=== PATIENT | male | born 1945 | race Caucasian/White ===

== ENCOUNTER → 2017-08-17 | Outpatient (CLI) | payer MEDICARE ==
[~2017-08-17] MED LIST: ALLO300T2 PO; AMIT25TA9 PO; AMLO10TA2 PO; CHLO25TA2 PO; CLOB0.055 TOPICAL; DOXA1TAB36 PO; FLUO0.1S9 EACH EYE; GLIP5TAB PO; HYDR-3583 PO; IRBE300T11 PO; MELO15TA20 PO; SIMV20TA PO; TRAM50TA; ZOLP10TA3 PO
[2017-08-17 09:55] LABS: BILIRUBIN, URINE NEG (NEG); BLOOD, URINE NEG (NEG); GLUCOSE,URINE NEG (NEG); HYALINE CAST, URINE 1 /lpf (RARE); KETONE, URINE NEG (NEG); MUCUS URINE FEW /lpf (OCC); NITRITE,URINE NEG (NEG); PH, URINE 5.5 (5.0-8.5); SQUAMOUS EPITHELIAL CELL URINE <1 /hpf (0-5); URINE COLOR YELLOW (YELLW/STRAW); URINE LEUKOCYTE ESTERASE NEG (NEG)
[2017-08-17 09:57] LABS: AUTOMATED NEUTROPHIL # 2.8 TH/MM3 (1.8-7.7); BASOPHIL % 0.6 % (0.0-2.0); EOSINOPHIL # 0.1 TH/MM3 (0-0.4); EOSINOPHIL % 2.9 % (0.0-4.0); HEMATOCRIT 39.3 % (39.0-51.0); HEMOGLOBIN 13.5 GM/DL (13.0-17.0); LYMPH % 34.3 % (9.0-44.0); LYMPHOCYTE # 1.7 TH/MM3 (1.0-4.8); MEAN CELL VOLUME 95.4 FL (80.0-100.0); MEAN CORPUSCULAR HEMOGLOBIN 32.8 PG (27.0-34.0); MEAN CORPUSCULAR HGB CONC 34.3 % (32.0-36.0); MEAN PLATELET VOLUME 8.3 FL (7.0-11.0); MONO % 7.7 % (0.0-8.0); MONOCYTE # 0.4 TH/MM3 (0-0.9); NEUT % 54.5 % (16.0-70.0); PLATELET COUNT 151 TH/MM3 (150-450); RED BLOOD COUNT 4.12 MIL/MM3 (4.50-5.90); RED CELL DISTRIBUTION WIDTH 13.6 % (11.6-17.2); WHITE BLOOD COUNT 5.1 TH/MM3 (4.0-11.0)
--- NOTE | 2017-08-17 10:03 | RADRPT ---
EXAM DATE/TIME: 08/17/2017 09:41 [facility] COMPARISON: No previous studies available for comparison. INDICATIONS : Evaluate for pneumonia, pneumothorax or communicable disease. Pre op for cervical spine surgery MEDICAL HISTORY : None. SURGICAL HISTORY : None. ENCOUNTER: Initial ACUITY: 1 day PAIN SCORE: 0/10 LOCATION: Bilateral chest FINDINGS: PA and lateral views of the chest demonstrate the lungs to be symmetrically aerated without evidence of mass, infiltrate or effusion. The cardiomediastinal contours are unremarkable. Osseous structure s are intact. CONCLUSION: No acute disease. Evens Pinto MD FACR on August 17, 2017 at 10:00 Board Certified Radiologist. This report was verified electronically.
[2017-08-17 10:11] LABS: ALBUMIN 4.1 GM/DL (3.4-5.0); ALT (GPT) 15 U/L (12-78); AST (GOT) 19 U/L (15-37); BICARBONATE 28.5 MEQ/L (21.0-32.0); BLOOD UREA NITROGEN 9 MG/DL (7-18); CALCIUM 8.7 MG/DL (8.5-10.1); CHLORIDE 104 MEQ/L (98-107); CREATININE 0.98 MG/DL (0.60-1.30); GLOMERULAR FILTRATION RATE 75 ML/MIN (>89); GLUCOSE,FASTING 147 MG/DL (74-99); SODIUM (NA) 140 MEQ/L (136-145)
[2017-08-17 10:12] LABS: ALKALINE PHOSPHATASE 105 U/L (45-117); TOTAL BILIRUBIN ADULT 0.7 MG/DL (0.2-1.0); TOTAL PROTEIN 7.3 GM/DL (6.4-8.2)
== END ==
LOC: CPRE 08:24
PROVIDERS: ATTEND Neurological Surgery
DX: Z01.811 Encounter for preprocedural respiratory examination (principal); Z01.812 Encounter for preprocedural laboratory examination; Z01.818 Encounter for other preprocedural examination; M50.10 Cervical disc disorder with radiculopathy, unspecified cervical region
CPT/HCPCS: 36415; 71046; 80053; 81001; 85025; 85610; 85730; 87640; 87641

== ENCOUNTER 2017-08-23 06:23 | Observation (INO) | payer MEDICARE ==
[~2017-08-23] VITALS: Ht 182.9 cm; Wt 110.8 kg
[~2017-08-23 06:23] MED LIST changes: -HYDR-3583 PO; -TRAM50TA
[2017-08-23] MEDS ORDERED: METOPROLOL TARTRATE 25 MG TAB PO PRN (06:45)
[2017-08-23] MEDS ORDERED: SODIUM CHLORID 0.9% 500 ML IV PRN (06:45)
[2017-08-23] MEDS ORDERED: POVIDONE IODINE 5% (ANTISEPSIS KIT) 4 APPLICATIONS EACH NARE PRN (06:45)
[2017-08-23] MEDS ORDERED: LACTATED RINGER'S 1000 ML IV PRN (06:45)
[2017-08-23] MEDS ORDERED: VANCOMYCIN 1000 MG/NS 250 ML ON-CALL IV SCH ×2 (06:45)
[2017-08-23] MEDS ORDERED: CHLORHEXIDINE GLUCONATE 2 % 1 PACK (2 CLOTHS) TOPICAL PRN (06:45)
[2017-08-23] MEDS ORDERED: ACETAMINOPHEN 1000 MG/100 ML 100 ML IV ONE (06:53)
[2017-08-23] MEDS ORDERED: ARTIFICIAL TEARS OPTH OINT 3.5 APPLIC/3.5 GM TUBO ONE (06:53)
[2017-08-23] MEDS ORDERED: PROPOFOL 500 MG/50 ML INJ 150 ML ONE (06:54)
[2017-08-23] MEDS ORDERED: SODIUM CHLOR 0.9% 1000 ML INJ 1,000 ML IV SCH (07:00)
[2017-08-23] MEDS ORDERED: ceFAZolin 2 GM PREMIX 50 ML ONE (07:17)
[2017-08-23] MEDS ORDERED: THROMBIN (TOPICAL) 5,000 UNIT VIAL ONE (07:17)
[2017-08-23] MEDS ORDERED: GELFOAM SIZE 100 ONE (07:17)
[2017-08-23] MEDS ORDERED: GENTAMICIN SULFATE 80 MG/2 ML VIAL ONE (07:17)
[2017-08-23] MEDS ORDERED: MICROFIBRILLAR COLLAGEN HEMOSTAT 70 X 35 MM BANDAGE ONE (07:17)
[2017-08-23] MEDS: CHLORHEXIDINE GLUCONATE 2 % 1 PACK (2 CLOTHS) TOPICAL SCH (09:00)
[2017-08-23] MEDS ORDERED: PROPOFOL 500 MG/50 ML INJ 100 ML ONE (09:53)
[2017-08-23] MEDS ORDERED: KETAMINE HCL 500 MG/5 ML VIAL ONE (09:53)
[2017-08-23] MEDS ORDERED: PHENYLEPHRINE HCL 10 MG/ML VIAL IV ONE (12:00)
[2017-08-23] MEDS ORDERED: SODIUM CHLORID 0.9% 500 ML INJ 500 ML IV ONE (12:00)
[2017-08-23] MEDS ORDERED: ONDANSETRON HCL 4 MG/2 ML VIAL IV ONE (12:00)
[2017-08-23] MEDS ORDERED: PHENYLEPH/NS 1000 MCG/10 ML SYR IV ONE (12:00)
[2017-08-23] MEDS ORDERED: SODIUM CHLOR 0.9% 250 ML INJ 500 ML IV ONE (12:00)
[2017-08-23] MEDS ORDERED: ePHEDrine/NS 25 MG/5 ML SYRINGE IV ONE (12:00)
[2017-08-23] MEDS ORDERED: KETOROLAC TROMETHAMINE 30 MG/ML (IVP) VIAL IV PUSH ONE (12:00)
[2017-08-23] MEDS ORDERED: LACTATED RINGER'S 1000 ML INJ 2,000 ML IV ONE (12:00)
[2017-08-23] MEDS ORDERED: PROPOFOL 200 MG/20 ML AMP IV ONE (12:00)
[2017-08-23] MEDS ORDERED: LIDOCAINE HCL 1% PF 5 ML SYRINGE OTHER ONE (12:00)
[2017-08-23] MEDS ORDERED: ROCURONIUM INJ 50 MG/5 ML SYRINGE IV PUSH ONE (12:00)
[2017-08-23] MEDS ORDERED: DEXAMETHASONE SOD PHOS 4 MG/ML VIAL IV ONE (12:00)
[2017-08-23] MEDS: SODIUM CHLOR 0.9% 1000 ML INJ 1,000 ML IV SCH ×3 (12:12→22:41)
[2017-08-23] MEDS ORDERED: ONDANSETRON HCL 4 MG/2 ML VIAL IV PRN (12:15)
[2017-08-23] MEDS ORDERED: MAGNESIUM HYDROXIDE SUSP 30 ML CUP PO PRN (12:15)
[2017-08-23] MEDS ORDERED: ACETAMINOPHEN/HYDROcodone 325 MG/10 MG TAB PO PRN ×2 (12:15→14:00)
[2017-08-23] MEDS ORDERED: cloNIDine HCL 0.1 MG TAB PO/NG PRN (12:15)
[2017-08-23] MEDS ORDERED: BISACODYL 10 MG SUPP RECTAL PRN (12:15)
[2017-08-23] MEDS ORDERED: GLUCAGON 1 MG/ML VIAL OTHER PRN ×2 (12:15→12:30)
[2017-08-23] MEDS ORDERED: CYCLOBENZAPRINE HCL 10 MG TAB PO PRN (12:15)
[2017-08-23] MEDS ORDERED: MORPHINE SULFATE 4 MG/ML INJ IV PUSH PRN ×2 (12:15)
[2017-08-23] MEDS ORDERED: ACETAMINOPHEN 325 MG TAB PO PRN (12:15)
[2017-08-23] MEDS ORDERED: DEXTROSE 50% IN WATER 50 ML VIAL(D50) IV PUSH PRN ×2 (12:15→12:30)
[2017-08-23] MEDS ORDERED: RESP: ALBUTEROL 2.5 MG/3 ML NEB (PRN) INH (12:15)
[2017-08-23] MEDS ORDERED: DO NOT ADM ANY ANTICOAGULANT DRUGS PRN (12:15)
[2017-08-23] MEDS ORDERED: MENTHOL LOZENGE BUCCAL PRN (12:15)
--- NOTE | 2017-08-23 12:43 | PD.OP ---
Operative Report Date of Surgery: Aug 23, 2017 Preoperative Diagnosis: Cervical spinal stenosis Postoperative Diagnosis: Cervical spinal stenosis Procedure: C5-6, C6-7 anterior cervical discectomy, interbody arthodhesis using PEEK cage filled with autologous bone graft, Simplicity plate and screws. Anesthesia: general Surgeon: Julián Healy Cable Ferryboat Operator(s): Alba De La Vega Operation and Findings: INDICATIONS FOR THE PROCEDURE Mr Harris is a 72 year-old male who presented with intractable neck pain and clinical evidence of C6 and C7 upper extremity radiculopathy. He was found to have significant spondylosis with stenosis. He has failed maximum nonsurgical management including multiple modalities of conservative treatment as well as pain management interventions by an interventional pain specialist. A surgical decompression and arthrodhesis were indicated. The [id number] details of the procedure, indications, alternatives, risks and potential complications were fully discussed with the patient. The patient fully understood. All The questions were answered. No guarantees were given. The patient voiced requesting the procedure and provided informed consents. The patient was offered the alternative of delaying the procedure and continuing with nonsurgical management. DETAILS OF THE SURGICAL PROCEDURE After the induction of general anesthesia, endotracheal intubation was performed. A Alvarado catheter, bilateral SALMA hose, and sequential compression devices were placed and kept throughout the procedure. Placement of electrodes for neurophysiological monitoring of the somato sensorial evoked potentials. motor evoked potentials, and EMG as well as laryngeal nerve monitoring was achieved. The patient was positioned supine on a Ghassan table with the head over a gel doughnut. All pressure points were carefully padded with eggcrate mattress. The eyes were tapped shut after ointment was applied by the anesthesiologist to prevent corneal abrasion. A Lara hugger was placed over the exposed lower body to maintain control of the core body temperature. The electrophysiological team placed the needles and electrodes in their proper location and baseline SSEP's and motor evoked potentials were registered prior and after positioning and endotracheal intubation. The anterior cervical region was prepped and draped in the usual sterile fashion. A localizing x-ray was performed with a C-arm. The surgical procedure was performed in several steps as follow: SURGICAL APPROACH A skin incision was made along the inferior cervical crease with a #10 blade. The dissection was carried out through the platysma exposing the sternocleidomastoid muscle. The cervical spine was approached following the fascial layers of the neck just medial to the anterior border of the sternocleidomastoid and carotid sheath by a combination of sharp and dull dissection. The omohyoid muscle was identified and carefully dissected laterally and the deep cervical fascia was carefully opened. The longus colli muscles were retracted to each side of the midline. A marker was placed at the disc space C5-6 and a cross-table lateral x-ray performed with a C-arm. SURGICAL DECOMPRESSION In order to decompress the anterior surface of the spinal cord it was necessary to preform a microsurgical resection of the disk at C5-6 and C6-7. At this point in the procedure the operating microscope was draped in the usual sterile fashion and brought to the field. The rest of the surgical procedure was performed using microdissection technique with the exception of the closure. Under the operative microscopic, a self-retaining retractor was placed underneath the longus colli muscle. Anterior osteophite spurs werte carefully removed with the Le[place]ell. The annulus at C5-6 and C6-7 were incised with a #15 blade and microdiscectomy was then carefully carried out using angled curets and pituitary forceps. There were osteophitic/disk complexes mass effect and compression of the dural sac and nerve roots. The posterior longitudinal ligament was then elevated with an angled curet and incised with a 15 bladed knife. A careful resection of the posterior longitudinal ligament was carried out using a thin footplate 2 mm Kerrison. A nerve hook was used to assess the epidural space behind the vertebral bodies C5, C6, and C7 in search for residual disk fragments. The margins of the posterior endplates at C5-6 and C6- 7 were carefully drilled and undercut with a TPS drill under high magnification. The decompression was then carried out laterally, and a bilateral foraminotomy was performed with a 2mm thin foot Kerrison. Then the vertebral bodies above and below the disk space were undercut using a 2 mm thin foot Kerrison. The epidural space was the systematically assessed with a nerve hook in search for disk fragments of scarr tissue. An excellent decompression was achieved in both, the dural sac and bilateral exiting nerve roots. The incision was then irrigated with a large amount of antibiotic solution INTERBODY ARTHRODHESIS In order to avoid collapse of the disk space which would result in bilateral foraminal stenosis, and to increase the chances of a successful fusion, it was necessary to place an interbody cage filled with autologous bone. At this point of the procedure, the superior and inferior endplates were then evenly decorticated with a TPS drill. The use of a drill in combination with a curette allowed me to systematically remove the cartilaginous endplates, exposing healthy bone for the interbody arthrodesis. Fourteen millimeters distraction pins were then placed at the vertebral bodies adjacent to the disk space, and gentle distraction was applied. The size of the interbody cage was then assessed using different size spacers, and a rasp was used to ensure no residual cartilage. A PEEK cage of the appropriate size was selected, and the interbody arthrodesis was then preformed by carefully impacting a PEEK cage filled with autologous bone graft to the disc spaces C5-6 and C6-7. An excellent position of the cage was achieved. This was was confirmed anatomically by feeling the space posterior to the implant and distance to the anterior surface of the dural sac. Radiological confirmation of the position was performed with a cross lateral xray performed with the C-arm. INTERNAL INSTRUMENTAL FIXATION Once that the interbody device was in an appropriate position, it was necessary to stabilize the spine with anterior instrumentation. Anterior instrumentation has demonstrated to increase the rate of fusion, accelerate the patient's recovery, and decrease the rate of failed interbody grafts. At this point of the procedure, the distance between the vertebral bodies was carefully measures, and a Simplicity plate was brought to the field and presented in front of the vertebral bodies C5, C6, and C7. Meat Slicer holes were then drilled using the TPS drill, and the plate was then secured to the spine using self-drilling, self-tapping screws. Initially, the inferior right screw was inserted, followed by placement of the contralateral upper screw. The remanding screws were sequentially placed in a contra-lateral fashion. A proper purchase was achieved with all screws and the position of the cage, plate and screws, and alignment of the spine was assessed anatomically by direct visualization, and radiologically by performing a cross lateral xray of the cervical spine with the C-arm. CLOSURE The incision was irrigated with several liters of antibiotic solution. Hemostasis was achieved with a bipolar. The screws were locked to prevent backing out. A 7 mm Ghassan-Sutton drain was left in the prevertebral space and externalized through a separate stab incision. The incision was then closed in layers. 3-0 Vicryl with interrupted sutures was used to close the platysma and subcutaneous tissue. The skin was closed with 4-0 running subcuticular Vicryl and glue was applied to the skin. The drain was secured with a 3-0 nylon. At the end of the procedure the sponge, needle and instrument counts were all correct. The estimated blood loss was less than 70-80 cc. No blood transfusion was given. No intraoperative complications occurred. The patient received prophylactic antibiotics. The patient was then extubated and transferred to the recovery room in stable condition. Julián Healy MD Aug 23, 2017 12:43
[2017-08-23] MEDS ORDERED: MIDAZOLAM HCL 2 MG/2 ML VIAL ONE (12:50)
[2017-08-23] MEDS ORDERED: *morphine SULFATE 4 MG/ML PERIprocedure ONLY ONE (13:08)
--- NOTE | 2017-08-23 14:45 | RADRPT ---
EXAM DATE/TIME: 08/23/2017 12:00 [facility] COMPARISON: No previous studies available for comparison. INDICATIONS : C5-6, C6-7 Anterior cervical disc fusion. MEDICAL HISTORY : Hypertension. Diabetes mellitus type II. Osteoarthritis. SURGICAL HISTORY : None. ENCOUNTER: Initial ACUITY: 1 day PAIN SCORE: Non-responsive. LOCATION: Cervical spine. FINDINGS: 2 magnified C-arm spot views lateral projections of the cervical spine. An anterior fusion plate with intervening bone graft device is seen involving C5-C6 and C6-C7. A surgical drain is noted within th e prevertebral soft tissues. The alignment seen within this lateral projection. CONCLUSION: Anterior fusion from C5-C7. Arnav Whitaker Jr., MD on August 23, 2017 at 14:42 Board Certified Radiologist. This report was verified electronically.
[2017-08-23 16:00] VITALS: BP 140/77; PULSE 104; RESP 18; TEMP 98.4; O2SAT 95
[2017-08-23 17:02] VITALS: O2SAT 96
[2017-08-23] MEDS: ceFAZolin 2 GM PREMIX 50 ML IV SCH (17:48)
[2017-08-23] MEDS: DEXAMETHASONE SOD PHOS 4 MG/ML VIAL IV PUSH SCH ×2 (17:48→22:37)
[2017-08-23] MEDS: INSULIN ASPART SUPPLEMENTAL SCALE SQ SCH ×2 (17:49→22:47)
[2017-08-23] MEDS ORDERED: PILL SPLITTER OTHER PRN (20:00)
[2017-08-23 20:34] VITALS: BP 141/72; PULSE 102; RESP 17; TEMP 98.6; O2SAT 95
[2017-08-23] MEDS ORDERED: ZOLPIDEM TARTRATE 10 MG TAB PO SCH (21:00)
[2017-08-23] MEDS ORDERED: CHLORHEXIDINE GLUCONATE 4% SOLN 120 ML BTL TOP SCH (21:00)
[2017-08-23] MEDS ORDERED: SIMVASTATIN PO SCH (21:00)
[2017-08-23] MEDS ORDERED: CLOBETASOL TOPICAL SCH (21:00)
[2017-08-23] MEDS ORDERED: AMITRIPTYLINE HCL 25 MG TAB PO SCH ×2 (21:00)
[2017-08-23] MEDS ORDERED: PRAVASTATIN SOD 40 MG TAB PO SCH (21:00)
[2017-08-23] MEDS: DOCUSATE SODIUM 100 MG CAP PO SCH (22:35)
[2017-08-24 00:38] VITALS: BP 152/77; PULSE 108; RESP 17; TEMP 98.1; O2SAT 95
[2017-08-24] MEDS: CHLORHEXIDINE GLUCONATE 2 % 1 PACK (2 CLOTHS) TOPICAL SCH ×2 (02:47→09:00)
[2017-08-24] MEDS: ceFAZolin 2 GM PREMIX 50 ML IV SCH ×2 (02:47→08:58)
[2017-08-24] MEDS: DEXAMETHASONE SOD PHOS 4 MG/ML VIAL IV PUSH SCH (05:03)
[2017-08-24 05:44] VITALS: BP 150/76; PULSE 86; RESP 17; TEMP 97.2; O2SAT 95
[2017-08-24 08:46] VITALS: BP 165/82; PULSE 89; RESP 18; TEMP 97.6; O2SAT 99
--- NOTE | 2017-08-24 08:49 | PD.CONS ---
[facility] By [facility] Reason for Consult Medical management. Primary Care Physician Eduardo Kimbrough M.D. Diagnoses: History of Present Illness Mr. Harris is a pleasant 72 year old male with a history of shoulder pain, right arm weakness who underwent surgical interventions for cervical spinal stenosis on 08/23/2017. 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 However, in the last year or so, he started having shoulder pain as well as right arm numbness, tingling and weakness. After evaluation by PCP and initial radiological work up, patient underwent MRI studies and EMG study. Subsequently, he was evaluated by neurosurgery. Despite conservative treatment, pain management, his symptoms were not getting better. Neurosurgery recommended surgical intervention which led to surgery during this admission. At the time of this interview, patient is doing well. Ambulating well. Denies any chest pain, shortness of breath, fever or chills. He has mild tingling on his right fingers. He has a cervical collar in place. No changes in bowel or bladder habits. Review of Systems Except as stated in HPI: all other systems reviewed are Neg Past Family Social History Allergies: Coded Allergies: No Known Allergies (Verified , 08/23/17) Past Medical History Hyperlipidemia Hypertension Neuropathic pain Diabetes mellitus Gout. Past Surgical History Hernia repair, hemorrhoid surgery, cataract Reported Medications Current Medications Medications (Trade) Dose Ordered Sig/Luzmaria Route Start Time Stop Time Status Last Admin (Lopressor) 25 mg CARDIOVASCULAR TECH PRN PO 08/23/17 06:45 08/26/17 06:44 (Betadine 5% Antisepsis Kit) 1 applic CARDIOVASCULAR TECH PRN EACH NARE 08/23/17 06:45 08/26/17 06:44 (Chlorhexidine 2% Cloth) 3 pack CARDIOVASCULAR TECH PRN TOPICAL 08/23/17 06:45 08/26/17 06:44 (Chlorhexidine 2% Cloth) 1 pack DAILY TOPICAL 08/23/17 09:00 08/25/17 09:01 08/24/17 02:47 Sodium Chloride 1,000 ml @ 100 mls/hr Q10H IV 08/23/17 12:12 08/23/17 22:41 (Dulcolax Supp) 10 mg DAILY PRN RECTAL 08/23/17 12:15 (Colace) 100 mg BID PO 08/23/17 21:00 08/24/17 08:59 (Milk Of Magnesia Liq) 30 ml DAILY PRN PO 08/23/17 12:15 (Protonix) 40 mg DAILY PO 08/24/17 09:00 08/24/17 09:00 (Protonix Inj) 40 mg DAILY PRN IVP 08/24/17 09:00 (Zofran Inj) 4 mg Q6H PRN IV 08/23/17 12:15 ([place] 10-325 Mg) 1 tab Q4H PRN PO 08/23/17 14:00 ([place] 10-325 Mg) 2 tab Q4H PRN PO 08/23/17 12:15 (Morphine Inj) 2 mg Q2H PRN IV PUSH 08/23/17 12:15 (Morphine Inj) 4 mg Q2H PRN IV PUSH 08/23/17 12:15 (Flexeril) 10 mg Q8H PRN PO 08/23/17 12:15 (Catapres) 0.1 mg Q6H PRN PO/NG 08/23/17 12:15 (Tylenol) 650 mg Q4H PRN PO 08/23/17 12:15 ([place] Dary) 1 lozenge UNSCH PRN BUCCAL 08/23/17 12:15 (Albuterol Neb) 2.5 mg Q4HR NEB PRN INH 08/23/17 12:15 (Hibiclens 4% Top Soln) 1 applic HS TOP 08/23/17 21:00 08/25/17 21:01 08/23/17 22:37 (D50w (Vial) Inj) 50 ml UNSCH PRN IV PUSH 08/23/17 12:15 (Glucagon Inj) 1 mg UNSCH PRN OTHER 08/23/17 12:15 (Cardura) 1 mg DAILY PO 08/24/17 09:00 (Ambien) 10 mg HS PO 08/23/17 21:00 08/23/17 22:36 (NovoLOG SUPPLEMENTAL SCALE) 1 ACHS SLIDING SCALE SQ 08/23/17 17:00 08/24/17 09:12 Miscellaneous Information ALL NURSING DEPARTME... UNSCH PRN .XX 08/23/17 12:15 08/24/17 12:14 (Zyloprim) 300 mg DAILY PO 08/24/17 09:00 08/24/17 08:59 (Elavil) 25 mg HS PO 08/23/17 21:00 08/23/17 22:47 (Norvasc) 10 mg DAILY PO 08/24/17 09:00 08/24/17 08:58 (Cozaar) 100 mg DAILY PO 08/24/17 09:00 08/24/17 08:59 (Pravachol) 40 mg HS PO 08/23/17 21:00 08/23/17 22:35 (Glucotrol) 5 mg DAILY PO 08/24/17 09:00 08/24/17 08:58 (Glucophage) 500 mg DAILY PO 08/24/17 09:00 08/24/17 08:58 (Mobic) 15 mg DAILY PO 08/24/17 09:00 08/24/17 08:58 (Hygroton) 25 mg DAILY PO 08/24/17 09:00 08/24/17 08:58 (Pill Splitter) 1 ea UNSCH PRN OTHER 08/23/17 20:00 Family History Dad underwent a pacemaker placement at age 95. Mom was healthy but she had dizzy spells. Social History Patient denies using any tobacco or illicit drugs. She drinks socially. Physical Exam Vital Signs Vital Signs Date Time Temp Pulse Resp B/P (MAP) Pulse Ox O2 Delivery O2 Flow Rate FiO2 08/24/17 05:44 97.2 86 17 150/76 (100) 95 08/24/17 00:38 98.1 108 17 152/77 (102) 95 08/23/17 20:34 98.6 102 17 141/72 (95) 95 08/23/17 17:02 96 Nasal Cannula 2.00 08/23/17 16:00 98.4 104 18 140/77 (98) 95 08/23/17 14:45 97.7 99 22 138/67 (90) 95 Nasal Cannula 2 08/23/17 14:00 95 20 130/61 (84) 96 Nasal Cannula 2 08/23/17 13:15 90 19 10/59 (43) 96 Nasal Cannula 2 08/23/17 13:00 82 20 117/58 (77) 94 Nasal Cannula 3 08/23/17 12:45 79 14 111/54 (73) 95 Nasal Cannula 3 08/23/17 12:40 Nasal Cannula 4 08/23/17 12:30 77 18 106/56 (73) 94 Simple Mask 5 08/23/17 12:17 98.7 87 20 108/52 (70) 88 Simple Mask 5 Physical Exam GENERAL: This is a well-nourished, well-developed patient, in no apparent distress. SKIN: No rashes, ecchymoses or lesions. Warm and dry. HEAD: Atraumatic. Normocephalic. No temporal or scalp tenderness. Cervical collar in place EYES: Pupils equal round and reactive. No injection or drainage. ENT: Nose without bleeding, purulent drainage or septal hematoma. Airway patent. NECK: Trachea midline. No lymphadenopathy. Supple, nontender, no meningeal signs. CARDIOVASCULAR: Regular rate and rhythm without murmurs, gallops, or rubs. No JVD. RESPIRATORY: Clear to auscultation. Breath sounds equal bilaterally. No wheezes , rales, or rhonchi. GASTROINTESTINAL: Abdomen soft, non-tender, nondistended. No guarding. MUSCULOSKELETAL: Extremities without clubbing, cyanosis, or edema. Patient is left-handed. Equal hand strength. NEUROLOGICAL: Awake and alert. Cranial nerves II through XII intact. No focal neurological deficits. Normal speech. Imaging Last Impressions Cervical Spine X-Ray 08/23/17 0000 Signed Impressions: Service Date/Time: Wednesday, August 23, 2017 12:00 - CONCLUSION: Anterior fusion from C5-C7. Arnav Whitaker Jr., MD Assessment and Plan Problem List: (1) Cervical spinal stenosis ICD Code: M48.02 - Spinal stenosis, cervical region (2) Diabetes mellitus ICD Code: E11.9 - Type 2 diabetes mellitus without complications (3) Hypertension ICD Code: I10 - Essential (primary) hypertension Assessment and Plan Mr. Harris is a pleasant 72-year-old male with a history of diabetes mellitus, hypertension, chronic shoulder pain and right arm numbness, weakness and pain. Patient underwent neurosurgical intervention due to cervical spinal stenosis. - Cervical spinal stenosis - s/p C5-6, C6-7 anterior cervical discectomy, interbody arthodhesis using PEEK cage filled with autologous bone graft, Simplicity plate and screws. - Continue Cervical collar for 3 weeks. - VANESA drain to be discontinued today. - Diabetes mellitus - Patient takes glipizide and metformin combo pill 5-500 milligrams twice a day. - He reports that his hemoglobin A1c is a usually around 6.2. - His blood glucose has been somewhat elevated. Could be because of dexamethasone. Decadron will be discontinued. - No adjustment in home medication for diabetes mellitus. - Hypertension - Continue amlodipine 10 mg daily, Irbesartan 300 mg daily, chlorthalidone 25 mg daily. - Neuropathic pain - Insomnia - Continue amitriptyline, zolpidem. Thank you for the consult. We'll continue to follow this patient with you during this hospitalization. Patient is being discharged today. Cris Jean DO Aug 24, 2017 8:49 am
[2017-08-24] MEDS ORDERED: HYDR-3583 PO (08:56)
[2017-08-24] MEDS: DOCUSATE SODIUM 100 MG CAP PO SCH (08:59)
[2017-08-24] MEDS ORDERED: CHLORTHALIDONE PO SCH (09:00)
[2017-08-24] MEDS ORDERED: MELOXICAM 15 MG TAB PO SCH ×2 (09:00)
[2017-08-24] MEDS ORDERED: IRBESARTAN PO SCH (09:00)
[2017-08-24] MEDS ORDERED: PANTOPRAZOLE SODIUM 40 MG VIAL IVP PRN (09:00)
[2017-08-24] MEDS ORDERED: PANTOPRAZOLE SOD 40 MG DELAYED RELEASE TAB PO SCH (09:00)
[2017-08-24] MEDS ORDERED: ALLOPURINOL 300 MG TAB PO SCH ×2 (09:00)
[2017-08-24] MEDS ORDERED: metFORMIN HCL 500 MG TAB PO SCH (09:00)
[2017-08-24] MEDS ORDERED: LOSARTAN 50 MG TAB PO SCH (09:00)
[2017-08-24] MEDS ORDERED: DOXAZOSIN MESYLATE 1 MG TAB PO SCH (09:00)
[2017-08-24] MEDS ORDERED: CHLORTHALIDONE 50 MG TAB PO SCH (09:00)
[2017-08-24] MEDS ORDERED: glipiZIDE 5 MG TAB PO SCH (09:00)
[2017-08-24] MEDS: INSULIN ASPART SUPPLEMENTAL SCALE SQ SCH (09:12)
--- NOTE | 2017-08-24 09:18 | HHI.DCPOC ---
Discharge Care Plan Diagnosis: (1) Status post cervical spinal arthrodesis (2) Diabetes Goals to Promote Your Health * To prevent worsening of your condition and complications * To maintain your health at the optimal level Directions to Meet Your Goals Take your medications as prescribed Follow your dietary instruction Follow activity as directed Keep your appointments as scheduled Take your immunizations and boosters as scheduled If your symptoms worsen call your PCP, if no PCP go to Urgent Care Center or Emergency Room Smoking is Dangerous to Your Health. Avoid second hand smoke Call the 24-hour hour crisis hotline for domestic abuse at Shaina Westbrook Aug 24, 2017 09:18
--- NOTE | 2017-08-24 09:19 | HHI.DS ---
Discharge Summary Admission Date Aug 23, 2017 at 12:19 Discharge Date: Aug 24, 2017 Admitting Diagnosis s/p ACDF (1) Status post cervical spinal arthrodesis ICD Code: Z98.1 - Arthrodesis status Brief History Mr Harris is a 72 year-old male who presented with intractable neck pain and clinical evidence of C6 and C7 upper extremity radiculopathy. He was found to have significant spondylosis with stenosis. He has failed maximum nonsurgical management including multiple modalities of conservative treatment as well as pain management interventions by an interventional pain specialist. A surgical decompression and arthrodesis were indicated. Imaging Last Impressions Cervical Spine X-Ray 08/23/17 0000 Signed Impressions: Service Date/Time: Wednesday, August 23, 2017 12:00 - CONCLUSION: Anterior fusion from C5-C7. Arnav Whitaker Jr., MD Hospital Course Mr. Harris underwent a C5-6, C6-7 anterior cervical discectomy, interbody arthodhesis using PEEK cage filled with autologous bone graft, Simplicity plate and screws. Aug 23, 2017 for cervical spinal stenosis. His surgery went well without complications. He is doing well, surgical pain controlled. His glucose checks however showed BG level of 310, medicine consulted for assistance. He will be started on Metformin and advice he follow up with his Chronic Disease Epidemiologist. Pt Condition on Discharge: Stable Discharge Disposition: Discharge Home Discharge Instructions DIET: Follow Instructions for: Diabetic Diet ACTIVITIES You can perform: Weight Bearing As Rony ADDITIONAL Activity Instructio: Wear collar on at all times, may remove collar during meals. No strenuous activities, heavy lifting, excessive pushing, pulling, overhead activities or any other activities that may place stress on the spine. Avoid falls. New Medications: Hydrocodone/Acetaminophen (Hydrocodone-Acetamin 10-325 mg) 10 Mg-325 Mg Tablet 1 TAB PO Q8H PRN for PAIN SCALE 1 TO 10, #60 TAB-CAP Continued Medications: Allopurinol (Allopurinol) 300 Mg Tab 300 MG PO DAILY Amitriptyline (Amitriptyline) 25 Mg Tab 25 MG PO HS Amlodipine (Amlodipine) 10 Mg Tab 10 MG PO DAILY Chlorthalidone (Chlorthalidone) 25 Mg Tab 25 MG PO DAILY Clobetasol Topical (Clobetasol Topical) 0.05% Cream 1 APPLIC TOPICAL BID, #15 GM 0 Refills Doxazosin (Doxazosin) 1 Mg Tab 1 MG PO DAILY Fluorometholone (Fluorometholone) 0.1 % Drops.susp EACH EYE BID Glipizide-Metformin (Glipizide-Metformin) 5-500 Mg Tab 1 TAB PO BID Irbesartan (Irbesartan) 300 Mg Tab 300 MG PO DAILY Meloxicam (Meloxicam) 15 Mg Tab 15 MG PO DAILY Simvastatin (Simvastatin) 20 Mg Tab 20 MG PO HS Zolpidem (Zolpidem) 10 Mg Tab 10 MG PO HS Shaina Westbrook Aug 24, 2017 09:19
--- NOTE | 2017-08-24 09:28 | HHI.NSPN ---
(Shaina Westbrook) Note Status Status: Progress Note (Shaina Westbrook) Interval History Interval History 72 y/o male s/p anterior cervical discectomy with arthrodesis on 08/23/17, glucose checks with elevated levels in the 317. patient doing well, ambulating without any difficulties. he reports of residual paresthesias in his fingers. he reports surgical pain controlled. denies changes in sensorimotor function, chest pain, headaches, SOB. (Shaina Westbrook) Labs, Micro, & Vital Signs Results Date Time Temp Pulse Resp B/P (MAP) Pulse Ox O2 Delivery O2 Flow Rate FiO2 08/24/17 08:46 97.6 89 18 165/82 (109) 99 08/24/17 05:44 97.2 86 17 150/76 (100) 95 08/24/17 00:38 98.1 108 17 152/77 (102) 95 08/23/17 20:34 98.6 102 17 141/72 (95) 95 08/23/17 17:02 96 Nasal Cannula 2.00 08/23/17 16:00 98.4 104 18 140/77 (98) 95 08/23/17 14:45 97.7 99 22 138/67 (90) 95 Nasal Cannula 2 08/23/17 14:00 95 20 130/61 (84) 96 Nasal Cannula 2 08/23/17 13:15 90 19 10/59 (43) 96 Nasal Cannula 2 08/23/17 13:00 82 20 117/58 (77) 94 Nasal Cannula 3 08/23/17 12:45 79 14 111/54 (73) 95 Nasal Cannula 3 08/23/17 12:40 Nasal Cannula 4 08/23/17 12:30 77 18 106/56 (73) 94 Simple Mask 5 08/23/17 12:17 98.7 87 20 108/52 (70) 88 Simple Mask 5 Constitutional Vital Signs Date Time Temp Pulse Resp B/P (MAP) Pulse Ox O2 Delivery O2 Flow Rate FiO2 08/24/17 08:46 97.6 89 18 165/82 (109) 99 08/24/17 05:44 97.2 86 17 150/76 (100) 95 08/24/17 00:38 98.1 108 17 152/77 (102) 95 08/23/17 20:34 98.6 102 17 141/72 (95) 95 08/23/17 17:02 96 Nasal Cannula 2.00 08/23/17 16:00 98.4 104 18 140/77 (98) 95 08/23/17 14:45 97.7 99 22 138/67 (90) 95 Nasal Cannula 2 08/23/17 14:00 95 20 130/61 (84) 96 Nasal Cannula 2 08/23/17 13:15 90 19 10/59 (43) 96 Nasal Cannula 2 08/23/17 13:00 82 20 117/58 (77) 94 Nasal Cannula 3 08/23/17 12:45 79 14 111/54 (73) 95 Nasal Cannula 3 08/23/17 12:40 Nasal Cannula 4 08/23/17 12:30 77 18 106/56 (73) 94 Simple Mask 5 08/23/17 12:17 98.7 87 20 108/52 (70) 88 Simple Mask 5 (Shaina Westbrook) Review of Systems Constitutional: DENIES: Fever, Chills Cardiovascular: DENIES: Chest pain Neurologic: COMPLAINS OF: Paresthesias, DENIES: Abnormal gait, Headache (Shaina Westbrook) Medications Current Medications Current Medications Medications (Trade) Dose Ordered Sig/Luzmaria Route PRN Reason Start Time Stop Time Status Last Admin Dose Admin Metoprolol Tartrate (Lopressor) 25 mg [facility] PRN PO SEE LABEL COMMENTS 08/23/17 06:45 08/26/17 06:44 Povidone Iodine (Betadine 5% Antisepsis Kit) 1 applic [facility] PRN EACH NARE SEE LABEL COMMENTS 08/23/17 06:45 08/26/17 06:44 Chlorhexidine Gluconate (Chlorhexidine 2% Cloth) 3 pack [facility] PRN TOPICAL SEE LABEL COMMENTS 08/23/17 06:45 08/26/17 06:44 Chlorhexidine Gluconate (Chlorhexidine 2% Cloth) 1 pack DAILY TOPICAL 08/23/17 09:00 08/25/17 09:01 08/24/17 02:47 Sodium Chloride 1,000 ml @ 100 mls/hr Q10H IV 08/23/17 12:12 08/23/17 22:41 Cefazolin Sodium/ Dextrose 50 ml @ 100 mls/hr Q8H IV 08/23/17 17:00 08/24/17 09:29 08/24/17 08:58 Bisacodyl (Dulcolax Supp) 10 mg DAILY PRN RECTAL SEVERE CONSTIPATION 08/23/17 12:15 Docusate Sodium (Colace) 100 mg BID PO 08/23/17 21:00 08/24/17 08:59 Magnesium Hydroxide (Milk Of Magnesia Liq) 30 ml DAILY PRN PO MILD TO MODERATE CONSTIPATION 08/23/17 12:15 Pantoprazole Sodium (Protonix) 40 mg DAILY PO 08/24/17 09:00 08/24/17 09:00 Pantoprazole Sodium (Protonix Inj) 40 mg DAILY PRN IVP SEE LABEL COMMENTS 08/24/17 09:00 Ondansetron HCl (Zofran Inj) 4 mg Q6H PRN IV NAUSEA OR VOMITING 08/23/17 12:15 Acetaminophen/ Hydrocodone Bitart ([place] 10-325 Mg) 1 tab Q4H PRN PO PAIN SCALE 1 TO 5 08/23/17 14:00 Acetaminophen/ Hydrocodone Bitart ([place] 10-325 Mg) 2 tab Q4H PRN PO PAIN SCALE 6 TO 10 08/23/17 12:15 Morphine Sulfate (Morphine Inj) 2 mg Q2H PRN IV PUSH PAIN SCALE 1 TO 6 08/23/17 12:15 Morphine Sulfate (Morphine Inj) 4 mg Q2H PRN IV PUSH PAIN SCALE 7 TO 10 08/23/17 12:15 Cyclobenzaprine HCl (Flexeril) 10 mg Q8H PRN PO MUSCLE SPASM 08/23/17 12:15 Clonidine (Catapres) 0.1 mg Q6H PRN PO/NG SYS BP GREATER THAN 170 MMHG 08/23/17 12:15 Acetaminophen (Tylenol) 650 mg Q4H PRN PO TEMPERATURE > 101.5 F 08/23/17 12:15 Menthol ([place]) 1 lozenge UNSCH PRN BUCCAL SORE THROAT 08/23/17 12:15 Albuterol Sulfate (Albuterol Neb) 2.5 mg Q4HR NEB PRN INH WHEEZING 08/23/17 12:15 Chlorhexidine Gluconate (Hibiclens 4% Top Soln) 1 applic HS TOP 08/23/17 21:00 08/25/17 21:01 08/23/17 22:37 Dextrose (D50w (Vial) Inj) 50 ml UNSCH PRN IV PUSH HYPOGLYCEMIA-SEE COMMENTS 08/23/17 12:15 Glucagon (Glucagon Inj) 1 mg UNSCH PRN OTHER HYPOGLYCEMIA-SEE COMMENTS 08/23/17 12:15 Doxazosin Mesylate (Cardura) 1 mg DAILY PO 08/24/17 09:00 Zolpidem Tartrate (Ambien) 10 mg HS PO 08/23/17 21:00 08/23/17 22:36 Insulin Aspart (NovoLOG SUPPLEMENTAL SCALE) 1 ACHS SLIDING SCALE SQ 08/23/17 17:00 08/24/17 09:12 Miscellaneous Information ALL NURSING DEPARTME... UNSCH PRN .XX SEE LABEL COMMENTS 08/23/17 12:15 08/24/17 12:14 Allopurinol (Zyloprim) 300 mg DAILY PO 08/24/17 09:00 08/24/17 08:59 Amitriptyline HCl (Elavil) 25 mg HS PO 08/23/17 21:00 08/23/17 22:47 Amlodipine Besylate (Norvasc) 10 mg DAILY PO 08/24/17 09:00 08/24/17 08:58 Losartan Potassium (Cozaar) 100 mg DAILY PO 08/24/17 09:00 08/24/17 08:59 Pravastatin Sodium (Pravachol) 40 mg HS PO 08/23/17 21:00 08/23/17 22:35 Glipizide (Glucotrol) 5 mg DAILY PO 08/24/17 09:00 08/24/17 08:58 Metformin HCl (Glucophage) 500 mg DAILY PO 08/24/17 09:00 08/24/17 08:58 Meloxicam (Mobic) 15 mg DAILY PO 08/24/17 09:00 08/24/17 08:58 Chlorthalidone (Hygroton) 25 mg DAILY PO 08/24/17 09:00 08/24/17 08:58 Miscellaneous (Pill Splitter) 1 ea UNSCH PRN OTHER SEE LABEL COMMENTS 08/23/17 20:00 (Shaina Westbrook) Medical Decision Making MDM Remarks 72 y/o male s/p anterior cervical discectomy with arthrodesis 08/23/17 Diabetes (Shaina Westbrook) Plan Plan Remarks appreciate medical assistance, cont insulin SS start on Metformin, pt f/u with his [facility] outpatient dw diet restrictions dc VANESA drain dc home today, he will f/u in 1 week for wound check (Shaina Westbrook) Attending Statement The exam, history, and the medical decision-making described in the above note were completed with the assistance of the mid-level provider. I reviewed and agree with the findings presented. I attest that I had a [id number] encounter with the patient on the same day, and personally performed and documented my assessment and findings in the medical record. (Julián Healy MD) Shaina Westbrook Aug 24, 2017 09:28 Julián Healy MD Aug 24, 2017 16:36
[2017-08-24 11:30] VITALS: O2SAT 99
== END 2017-08-24 12:33 | disposition home or self-care (01) ==
LOC: HSDC 06:23 → EDUNIT# 08:30 → HSDI 12:19 → N05A 15:09
PROVIDERS: ADMIT Neurological Surgery; ATTEND Neurological Surgery
DX: M48.02 Spinal stenosis, cervical region (principal); M47.892 Other spondylosis, cervical region; I10 Essential (primary) hypertension; E78.5 Hyperlipidemia, unspecified; E11.51 Type 2 diabetes mellitus with diabetic peripheral angiopathy without gangrene; E11.40 Type 2 diabetes mellitus with diabetic neuropathy, unspecified; G47.00 Insomnia, unspecified; B20 Human immunodeficiency virus [HIV] disease; E66.9 Obesity, unspecified
CPT/HCPCS: 00600; 20936; 22551; 22552; 22853; 72040; 76000; 82948; 94150; 96360; 96361; 96372; 97162; C1713; G0378; J0131; J0690; J1100; J1580; J1815; J1885; J2250; J2270; J2370; J2405; J3010; J3370; J7030; J7040; J7050; J7120; L0150; L0172